=== PATIENT | male | born 1990 | race African-American/Black ===

== ENCOUNTER 2022-03-07 17:22 | Emergency (ER) | payer SELFPAY ==
[~2022-03-07] VITALS: Ht 185.4 cm; Wt 163.0 kg
[2022-03-07 17:57] VITALS: BP 113/84
[2022-03-07] MEDS ORDERED: ACET-2708 MT (18:42)
== END 2022-03-07 19:39 | disposition home or self-care (01) ==
LOC: ER 17:22
DX: B04 Monkeypox (principal); Z88.0 Allergy status to penicillin
CPT/HCPCS: 87593; 99282; Z7610

== ENCOUNTER 2022-03-13 11:20 | Emergency (ER) | payer BC ==
[~2022-03-13 11:20] MED LIST: ACET-2708 MT
== END 2022-03-13 12:32 | disposition left against medical advice (07) ==
LOC: ER 11:41
DX: Z53.21 Procedure and treatment not carried out due to patient leaving prior to being seen by health care provider (principal)